=== PATIENT | male | born 1960 | race African-American/Black ===

== ENCOUNTER 2024-04-20 14:21 | Emergency (ER) | payer BC, MEDICAID ==
[~2024-04-20] VITALS: Ht 188 cm; Wt 105.0 kg
[2024-04-20 14:23] VITALS: O2SAT 99
[2024-04-20 15:56] LABS: BASOPHILS % 1.4 % (0.0-2.0); EOSINOPHILS % 4.8 % (0.0-5.0); HEMATOCRIT. 33.5 % (42.0-52.0); HEMOGLOBIN. 11.6 g/dL (14.0-18.0); LYMPHOCYTES % 32.5 % (20.0-50.0); MEAN CORPUSCULAR HGB CONC 34.6 g/dL (31.0-37.0); MEAN CORPUSCULAR VOLUME 92.4 fL (80.0-94.0); MEAN PLATELET VOLUME 9.4 fl (7.4-10.4); MONOCYTES % 6.2 % (2.0-8.0); NEUTROPHILS % 55.1 % (40.0-76.0); PLATELET 199 x1000/uL (130-400); RED BLOOD CELL COUNT 3.62 mill/uL (4.7-6.1); WHITE BLOOD COUNT 7.7 x1000/uL (4.5-11.0)
[2024-04-20 15:57] LABS: CLARITY URINE CLEAR (CLEAR); COLOR URINE YELLOW (YELLOW); GLUCOSE URINE NEGATIVE (NEGATIVE); KETONES URINE NEGATIVE (NEGATIVE); LEUKOCYTE ESTERASE URINE NEGATIVE (NEGATIVE); NITRITE URINE NEGATIVE (NEGATIVE); OCCULT BLOOD URINE NEGATIVE (NEGATIVE); PH URINE 5.5 (4.5-8.0); PROTEIN URINE NEGATIVE (NEGATIVE); SPECIFIC GRAVITY URINE 1.009 (1.005-1.030); UROBILINOGEN URINE 0.2 E.U./dL (0.2-1.0)
[2024-04-20 16:01] LABS: CARBON DIOXIDE 20 mEq/L (21-32); CHLORIDE 108 mEq/L (98-107); POTASSIUM 4.1 mEq/L (3.5-5.1); SODIUM 137 mEq/L (136-145)
[2024-04-20 16:02] LABS: CALCIUM 9.8 mg/dL (8.7-10.4)
[2024-04-20 16:06] LABS: *AMPHETAMINES SCREEN URINE NEGATIVE (NEGATIVE); *BARBITURATES SCREEN URINE NEGATIVE (NEGATIVE); *BENZODIAZEPINES SCREEN URINE PRESUMPTIVE POSITIVE (NEGATIVE); *COCAINE SCREEN URINE NEGATIVE (NEGATIVE); METHADONE URINE SCREEN Pos (NEGATIVE); OPIATES URINE SCREEN NEGATIVE (NEGATIVE)
[2024-04-20 16:07] LABS: CREATININE 1.3 mg/dL (0.6-1.3); ETHANOL BLOOD 87 mg/dL (<10); GLUCOSE 89 mg/dL (70-105); UREA NITROGEN BLOOD 17 mg/dL (9-23)
[2024-04-20 16:07] LABS: CANNABINOID URINE SCREEN NEGATIVE (NEGATIVE); ECSTASY MDMA SCREEN URINE NEGATIVE (NEGATIVE); PHENCYCLIDINE URINE SCREEN NEGATIVE (NEGATIVE)
[2024-04-20 16:17] LABS: TROPONIN I HIGH SENSITIVITY < 4 ng/L (3.0-53)
[2024-04-20] MEDS: SODIUM CHLORIDE 0.9% 1,000 ML IV ONE (16:24)
[2024-04-20] MEDS: LEVETIRACETAM 500MG PREMIX 100 ML IV ONE (16:24)
[2024-04-20 18:25] LABS: PROTHROMBIN TIME 10.8 sec (9.6-11.0)
[2024-04-20] MEDS ORDERED: GABA-532 MT (20:44)
[2024-04-20] MEDS ORDERED: NAPR220C61 MT (20:44)
[2024-04-20] MEDS ORDERED: KEPP500 MT (20:44)
[2024-04-20 21:05] VITALS: BP 132/89; PULSE 81; RESP 20; TEMP 98.4
== END 2024-04-20 21:15 | disposition home or self-care (01) ==
LOC: ER 14:21
DX: F10.129 Alcohol abuse with intoxication, unspecified (principal); G40.909 Epilepsy, unspecified, not intractable, without status epilepticus; Y90.4 Blood alcohol level of 80-99 mg/100 ml
CPT/HCPCS: 80305; 80048; 81003; 80320; 85025; 85610; 84484; 36415; 70450; 96365; 96366; 99285; J1953; J7030; G0480